=== PATIENT | female | born 1980 | race Caucasian/White ===

== ENCOUNTER 2019-08-30 02:13 | Emergency (ER) | payer SELFPAY ==
[~2019-08-30] VITALS: Ht 157.5 cm; Wt 54.4 kg
[2019-08-30] MEDS ORDERED: NITROGLYCERIN SUBLINGUAL 0.4 MG BOTTLE OF 25. SL PRN (02:15)
[2019-08-30 02:21] LABS: BASO # 0.1 x10^3/uL (0.0-0.2); BASO % 1 % (0-3); EOS # 0.1 x10^3/uL (0.0-0.7); EOS % 2 % (0-3); HEMATOCRIT 39.5 % (36.0-47.0); HEMOGLOBIN 13.8 g/dL (12.0-15.5); LYMPH # 2.5 x10^3/uL (1.0-4.8); LYMPH % 39 % (24-48); MEAN CORPUSCULAR HEMOGLOBIN 32 pg (25-35); MEAN CORPUSCULAR HGB CONC 35 g/dL (31-37); MEAN CORPUSCULAR VOLUME 92 fL (79-100); MONO # 0.4 x10^3/uL (0.0-1.1); MONO % 6 % (0-9); NEUT # 3.5 x10^3/uL (1.8-7.7); NEUT % 53 % (31-73); PLATELET COUNT 147 x10^3/uL (140-400); RED BLOOD COUNT 4.32 x10^6/uL (3.50-5.40); RED CELL DISTRIBUTION WIDTH 12.3 % (11.5-14.5); WHITE BLOOD COUNT 6.5 x10^3/uL (4.0-11.0)
[2019-08-30 02:29] LABS: CALCIUM 9.1 mg/dL (8.5-10.1); CREATININE 0.8 mg/dL (0.6-1.0); GFR 79.9; POTASSIUM 3.2 mmol/L (3.5-5.1)
--- NOTE | 2019-08-30 02:32 | PHYS DOC ---
Past Medical History The HEART Score for CP Pts HEART Score for Chest Pain: HEART Score for Chest Pain Response (Comments) Value History Slighlty/Non-Suspicious 0 ECG Normal 0 Age < 45 0 Risk Factors 1 or 2 Risk Factors 1 Troponin < Normal Limit 0 Total 1 Risk Factors: Risk Factors: DM, Current or recent (<one month) smoker, HTN, HLP, family history of CAD, obesity. Risk Scores: Score 0 - 3: 2.5% MACE over next 6 weeks - Discharge Home Score 4 - 6: 20.3% MACE over next 6 weeks - Admit for Clinical Observation Score 7 - 10: 72.7% MACE over next 6 weeks - Early Invasive Strategies Adult General Chief Complaint Chief Complaint: SHORTNESS OF BREATH HPI HPI 39 no female presents to the emergency department complaints of chest pain and shortness breath, pain with breathing. Patient states this started around 9 PM worsening tonight. She describes a sharp sensation positive cough however nonproductive. Denies any nausea or vomiting. Patient has a history of PE been off of Coumadin for approximately 1 year. Given her persistent symptoms she presented to the ER for further evaluation. Deep breath as well as cough make her pain worse. Patient denies any fevers. Review of Systems Review of Systems Constitutional: Denies fever or chills [] Eyes: Denies change in visual acuity, redness, or eye pain [] HENT: Denies nasal congestion or sore throat [] Respiratory: Cough, shortness of breath Cardiovascular: No additional information not addressed in HPI [] GI: Denies abdominal pain, nausea, vomiting, bloody stools or diarrhea [] Neurologic: Denies headache, focal weakness or sensory changes [] All other systems were reviewed and found to be within normal limits, except as documented in this note. Current Medications Current Medications Current Medications Medications (Trade) Dose Ordered Sig/Jesus Start Time Stop Time Status Last Admin Dose Admin Ketorolac Tromethamine (Toradol 30mg Vial) 30 mg 1X ONCE 08/30/19 03:00 08/30/19 03:01 DC 08/30/19 02:47 30 MG Nitroglycerin (Nitrostat) 0.4 mg PRN Q5MIN PRN 08/30/19 02:15 08/31/19 02:14 08/30/19 02:46 0.4 MG Potassium Chloride (Klor-Con) 40 meq 1X ONCE 08/30/19 04:00 08/30/19 04:01 DC 08/30/19 04:10 40 MEQ Allergies Allergies Allergies Coded Allergies Type Severity Reaction Last Updated Verified amoxicillin Allergy Intermediate Rash 08/30/19 Yes Physical Exam Physical Exam Constitutional: Well developed, well nourished, no distress secondary to pain, non-toxic appearance. [] HENT: Normocephalic, atraumatic, bilateral external ears normal, oropharynx moist, no oral exudates, nose normal. [] Eyes: PERRLA, EOMI, conjunctiva normal, no discharge. [] Cardiovascular:Heart rate regular rhythm, no murmur [] Lungs & Thorax: Bilateral breath sounds clear to auscultation [] Abdomen: Bowel sounds normal, soft, no tenderness, no masses, no pulsatile masses. [] Skin: Warm, dry, no erythema, no rash. [] Back: No tenderness, no CVA tenderness. [] Extremities: No tenderness, no edema. [] Neurologic: Alert and oriented X 3, no focal deficits noted. [] Psychologic: Affect normal, judgement normal, mood normal. [] Current Patient Data Vital Signs Vital Signs Date Time Temp Pulse Resp B/P (MAP) Pulse Ox O2 Delivery O2 Flow Rate FiO2 08/30/19 02:46 72 116/74 08/30/19 02:13 98.2 11 100 Room Air 98.2 Lab Values Laboratory Tests Test 08/30/19 02:15 08/30/19 03:54 White Blood Count 6.5 x10^3/uL (4.0-11.0) Red Blood Count 4.32 x10^6/uL (3.50-5.40) Hemoglobin 13.8 g/dL (12.0-15.5) Hematocrit 39.5 % (36.0-47.0) Mean Corpuscular Volume 92 fL (79-100) Mean Corpuscular Hemoglobin 32 pg (25-35) Mean Corpuscular Hemoglobin Concent 35 g/dL (31-37) Red Cell Distribution Width 12.3 % (11.5-14.5) Platelet Count 147 x10^3/uL (140-400) Neutrophils (%) (Auto) 53 % (31-73) Lymphocytes (%) (Auto) 39 % (24-48) Monocytes (%) (Auto) 6 % (0-9) Eosinophils (%) (Auto) 2 % (0-3) Basophils (%) (Auto) 1 % (0-3) Neutrophils # (Auto) 3.5 x10^3/uL (1.8-7.7) Lymphocytes # (Auto) 2.5 x10^3/uL (1.0-4.8) Monocytes # (Auto) 0.4 x10^3/uL (0.0-1.1) Eosinophils # (Auto) 0.1 x10^3/uL (0.0-0.7) Basophils # (Auto) 0.1 x10^3/uL (0.0-0.2) Platelet Estimate Adequate (ADEQUATE) Large Platelets Occ Giant Platelets Occ D-Dimer (Ashlee) 0.42 ug/mlFEU (0.00-0.50) Sodium Level 142 mmol/L (136-145) Potassium Level 3.2 mmol/L (3.5-5.1) L Chloride Level 104 mmol/L (98-107) Carbon Dioxide Level 28 mmol/L (21-32) Anion Gap 10 (6-14) Blood Urea Nitrogen 7 mg/dL (7-20) Creatinine 0.8 mg/dL (0.6-1.0) Estimated GFR (Cockcroft-Gault) 79.9 BUN/Creatinine Ratio 9 (6-20) Glucose Level 85 mg/dL (70-99) Calcium Level 9.1 mg/dL (8.5-10.1) Magnesium Level 2.4 mg/dL (1.8-2.4) Total Bilirubin 1.1 mg/dL (0.2-1.0) H Aspartate Amino Transferase (AST) 17 U/L (15-37) Alanine Aminotransferase (ALT) 20 U/L (14-59) Alkaline Phosphatase 47 U/L (46-116) Troponin I Quantitative < 0.017 ng/mL (0.000-0.055) < 0.017 ng/mL (0.000-0.055) Total Protein 7.6 g/dL (6.4-8.2) Albumin 4.1 g/dL (3.4-5.0) Albumin/Globulin Ratio 1.2 (1.0-1.7) Laboratory Tests 08/30/19 02:15 Laboratory Tests 08/30/19 02:15 EKG EKG EKG reviewed, normal sinus rhythm, heart rate 59, normal axis no evidence of ST elevation HI, interpretation time 0217[] Radiology/Procedures Radiology/Procedures [facility] [address] [place] [address] IMAGING REPORT Signed PATIENT: LUPE JENKINS ACCOUNT: [id number] : 1980 LOCATION: ER AGE: 39 SEX: F EXAM STATUS: PRE ER ORD. PHYSICIAN: MIRNA FOLEY MD REASON: chest pain PROCEDURE: PORTABLE CHEST 1V EXAM: CHEST 1 VIEW History: Chest pain COMPARISON: None available. TECHNIQUE: Single portable radiograph of the chest FINDINGS: The cardiac silhouette is unremarkable. The lungs are clear bilaterally. The costophrenic sulci are clear and well demarcated. Small nodular densities projecting over the right and left lung base is probably nipple shadows. IMPRESSION: No radiographic evidence of an acute cardiopulmonary process. Electronically signed by: Rosalio Washington MD (08/30/2019 2:34 AM) [facility] DICTATED and SIGNED BY: ROSALIO WASHINGTON MD DATE: 08/30/19233 [] Course & Med Decision Making Course & Med Decision Making Pertinent Labs and Imaging studies reviewed. (See chart for details) []39 yo female presents to the emergency department complaints of chest pain and shortness breath, pain with breathing. Patient states this started around 9 PM worsening tonight. She describes a sharp sensation positive cough however nonproductive. Denies any nausea or vomiting. Patient has a history of PE been off of Coumadin for approximately 1 year. Given her persistent symptoms she presented to the ER for further evaluation. Deep breath as well as cough make her pain worse. Patient denies any fevers.\ labs reviewed Troponin negative x 2 sets CXR without acute consolidation Pain improved after toradol DDImer < 0.50 (negative) Discussed dc with patient and recommendations for follow up Dragon Disclaimer Dragon Disclaimer This electronic medical record was generated, in whole or in part, using a voice recognition dictation system. Departure Departure Impression: Primary Impression: Chest pain Disposition: HOME, SELF-CARE Condition: IMPROVED Patient Instructions: Chest Pain Observation Additional Instructions: Recommend follow up with PCP 3 - 5 days Return to the ER with worsening symptoms, intractable pain, fever, altered mental status Tylenol/Motrin as needed for pain Cardiac enzymes x 2 sets negative Problem Qualifiers Primary Impression: Chest pain Chest pain type: chest pain on breathing Qualified Codes: R07.1 - Chest pain on breathing MIRNA FOLEY MD Aug 30, 2019 02:32
[2019-08-30 02:37] LABS: ALBUMIN 4.1 g/dL (3.4-5.0); ALBUMIN/GLOBULIN RATIO 1.2 (1.0-1.7); MAGNESIUM 2.4 mg/dL (1.8-2.4); TOTAL BILIRUBIN 1.1 mg/dL (0.2-1.0); TOTAL PROTEIN 7.6 g/dL (6.4-8.2)
--- NOTE | 2019-08-30 02:37 | RAD ---
EXAM: CHEST 1 VIEW History: Chest pain COMPARISON: None available. TECHNIQUE: Single portable radiograph of the chest FINDINGS: The cardiac silhouette is unremarkable. The lungs are clear bilaterally. The costophrenic sulci are clear and well demarcated. Small nodular densities projecting over the right and left lung base is probably nipple shadows. IMPRESSION: No radiographic evidence of an acute cardiopulmonary process. Electronically signed by: Rosalio Washington MD (08/30/2019 2:34 AM) [facility]
[2019-08-30 02:55] LABS: PLT ESTIMATE ADEQUATE (ADEQUATE)
[2019-08-30] MEDS ORDERED: KETOROLAC 30 MG/ML VIAL. IVP ONE (03:00)
[2019-08-30] MEDS ORDERED: POTASSIUM CHLORIDE 20 MEQ TABLET.ER. PO ONE (04:00)
[2019-08-30 04:42] VITALS: BP 106/68
--- NOTE | 2019-08-30 05:01 | EKG ---
[facility] [address] [place] [address] Test Date: 2019-08-30 Test Time: 02:10:02 Pat Name: LUPE JENKINS Department: Room: Gender: F Associate Faculty: : [id number] Requested By: MIRNA FOLEY Order Number: [id number] Reading MD: Nikita Donovan MD Measurements Intervals Carpenter Rate: 58 P: OR: QRS: 73 QRSD: 88 T: 66 QT: 428 QTc: 423 Interpretive Statements SR NON-SPECIFIC ST/T CHANGES Electronically Signed On 08-30-2019 13:34:40 [employer] by Nikita Donovan MD
== END 2019-08-30 04:47 | disposition home or self-care (01) ==
LOC: ER 02:13
DX: R07.89 Other chest pain (principal); R06.02 Shortness of breath; R05 Cough; Z88.1 Allergy status to other antibiotic agents; Z79.899 Other long term (current) drug therapy
CPT/HCPCS: 36415; 71045; 80053; 83735; 84484; 85025; 85379; 93005; 96374; 99285; J1885